=== PATIENT | male | born 1935 | race Caucasian/White ===

== ENCOUNTER → 2017-03-04 | Outpatient (CLI) | payer MEDICARE ==
[~2017-03-04] MED LIST: ANEXSIA 5/325 M1 TA1 PO; ASPIRIN PO; BAYER ASPIRIN325 M1 PO; CARVEDILOL3.125 MG PO; COUMADIN PO; COUMADIN5 MG PO; FINASTERIDE5 MG PO; FLOMAX0.4 M1 PO; FLOMAX0.4 MG PO; HYDROCODONE-APA1 T33 PO; K-DUR20 ME1 PO; LASIX PO; LIPITOR PO; LISINOPRIL PO; MELOXICAM15 MG PO; METFORMIN HCL500 M1 PO; MOBIC15 MG PO; NITROGLYGERIN0.4 MG SL; PLAVIX PO; PRILOSEC20 M1 PO; SYNTHROID PO; VICODIN 5/500 T1 TAB PO; VICODIN PO
== END | disposition home or self-care (01) ==
LOC: CRAD 10:07
DX: R13.10 Dysphagia, unspecified (principal)
CPT/HCPCS: 74230; 92611; G8996-GN; G8997-GN; G8998-GN